=== PATIENT | male | born 1945 | race Caucasian/White ===

== ENCOUNTER 2016-08-07 12:37 | Inpatient (IN) | payer OTHER ==
[~2016-08-07] VITALS: Ht 182.9 cm; Wt 84.4 kg
--- NOTE | ~2016-08-07 | HC ---
[facility] [place] [address] CONSULTATION Name: VIDA PRIEST Room #: 442-P ADM IN M.R.#: [id number] Admission: 08/07/16 Attend Phys: Cipriano Kaplan MD Discharge: Date of : 43 Report #: [id number] THIS REPORT FOR: //name// CC: Obinna Powers DATE OF SERVICE: 08/07/2016 HISTORY OF PRESENT ILLNESS: The patient is a 71-year-old male with a complex medical history. He has a myelodysplastic syndrome that has required recurrent blood transfusions averaging 2 per month for the last year. He has generally seen at the [facility], was actually at a hematology office visit today and was noted to have a hemoglobin of in the 5 range, reportedly was given 2 units of packed cells. He also has been complaining of dark melanotic type stools since Saturday. The plan was for admission over there; however, , therefore he was transferred to [facility] for further evaluation. The patient denies any abdominal pain. He denies any nausea or vomiting. He is not currently on any anticoagulation therapy. He has had an extensive GI workup for GI bleed in May of last year. Upper endoscopy in April 2016, revealed erythematous nodular mucosa with mucosal breaks in the body of the stomach. Biopsies were obtained to rule out H. pylori infection at that time. A colonoscopy was performed on May 08, there was fresh blood noted in the descending colon, scattered erythema and ulceration, biopsies were obtained and the clots were deployed. Capsule study was performed on May 09, a large amount of melena was present in the small-bowel without a clear source seen. An enteroscopy was then performed the next day. No evidence of blood, AVM, or mucosal abnormalities were noted. He had a tagged red blood cell scan on 07/12, that was negative. He had a total of 4 units of packed cells and 1 unit of platelets at that time. He was placed on p.o. PPI at that time. He also has had an episode of epistaxis in June 2016, which need to be cauterized per ENT. He denies any further epistaxis at this time. The patient is undergoing supportive and palliative chemotherapy for his myelodysplastic syndrome. His weight has been fairly stable. He denies any family history of colon cancer. PAST MEDICAL HISTORY: Myelodysplastic syndrome, thrombocytopenia, pancytopenia, he is transfusion dependent, history of pleural effusion, aortic valve stenosis, coronary artery disease, previous coronary artery bypass graft, history of atrial fibrillation paroxysmal, PTSD, history of depression, diabetes type 2, history of dementia, anemia, previous history of GI bleed as described above, COPD, and peripheral vascular disease. ALLERGIES: To OXYCODONE and BEE STINGS. [address] [address] CONSULTATION Name: VIDA PRIEST Room #: 442-P [facility] IN M.R.#: [id number] Admission: 08/07/16 Attend Phys: Cipriano Kaplan MD Discharge: Date of : 43 Report #: [id number] REVIEW OF SYSTEMS: As per HPI. MEDICATIONS: I reviewed his chart for current medications, but I did not find a list of these medications at this time. FAMILY HISTORY: Negative for colon cancer. SOCIAL HISTORY: He denies any tobacco currently. No significant alcohol use. PHYSICAL EXAMINATION: VITAL SIGNS: Temperature is 98.4, pulse 116, blood pressure is 111/73, and respiratory rate is 24. GENERAL: He is alert and oriented x3, in no acute distress. HEENT: Sclerae are nonicteric. Oropharynx is clear. NECK: Supple. CARDIOVASCULAR: Systolic ejection murmur noted, regular rate and rhythm. CHEST: Clear to auscultation bilaterally. ABDOMEN: Soft. He is nontender, nondistended, normoactive bowel sounds. EXTREMITIES: No cyanosis, clubbing or edema. LABORATORY DATA: Office visit lab sheets today showed hemoglobin of 5.0, WBC is 4.7, and platelet count 48. Again, the patient was transfused 2 units of packed cells today. ASSESSMENT AND PLAN: Anemia. The patient with a complex history as he is transfusions dependent due to a myelodysplastic disorder; however, he is having black melanotic type stools. He has had a previous history of gastrointestinal bleed with an extensive workup showing blood in various studies, but not finding an etiology. He was obviously more anemic today and [facility] I would recommend proceeding with a repeat EGD tomorrow. If this is negative, then we would likely proceed with an M2 capsule, especially as the last M2 capsule did show some melanotic changes in the small-bowel, but the bleeding source was not noted, it is possibly could have had a bleeding arteriovenous malformation that was not seen easily due to blood at that time. We would recommend monitoring the hemoglobin closely, make the patient n.p.o. after midnight. Thank you for allowing me to participate in his care. <ELECTRONICALLY SIGNED> By: Peter Franco MD 08/10/16 1655 1810 24 Peter Franco MD /nt
--- NOTE | ~2016-08-07 | H ---
[facility] [place] [address] HISTORY AND PHYSICAL Name: VIDA PRIEST Room #: 442-P ADM IN M.R.#: [id number] Admission: 08/07/16 Attend Phys: Cipriano Kaplan MD Discharge: Date of : 43 Report #: [id number] THIS REPORT FOR: //name// CC: Cipriano Lutz DATE OF SERVICE: 08/07/2016 ATTENDING PHYSICIAN: Nva Lopez MD PRIMARY CARE PHYSICIAN: Saira Lutz MD CHIEF COMPLAINT: Low hemoglobin. HISTORY OF PRESENT ILLNESS: The patient is a 71-year-old male who has a history of myelodysplastic syndrome. He has been transfusion dependent and normally receives blood transfusion about every 2 weeks. He follows with the protection manager at the [facility]. He was reporting black stools for the last 3 days. He was seen in his protection manager clinic earlier today and had blood drawn, which showed a hemoglobin of 5.0. Apparently, the [facility] did not have any bed and he was transferred to [facility] for further evaluation. His record shows that his last hemoglobin on July 31 was 7.7 and that he had received a unit of blood at that time. He is not on any blood thinners. His blood transfusion from the [facility] is now finished. He is currently resting comfortably. He has continued to have black stools for the last few days and the last of which was 2 hours ago after arriving here. He has had extensive GI workup back in May at the [facility], which included an EGD, which showed an erythematous nodular mucosa with mucosal breaks in the body of the stomach. A colonoscopy showed fresh blood in the descending colon with scattered erythema and ulceration, there was a 7 mm ulcer in the descending colon and he had 2 endoclips deployed, there was severe diverticulosis noted on the sigmoid, he also had a capsule study in May, which showed a large amount of melena present in the small bowel without a clear source seen. He has been on PPI. PAST MEDICAL HISTORY: Myelodysplastic syndrome with pancytopenia, aortic stenosis, prior GI bleed, iron deficiency anemia, hypertension, paroxysmal atrial fibrillation, hyperlipidemia, asthma, posttraumatic stress disorder, depression, diabetes type 2, coronary artery disease with prior stent, dementia, anemia, chronic obstructive lung disease, prior pulmonary hemorrhage. PAST SURGICAL HISTORY: He had multiple bone marrow biopsies, most recently 07/30/2016 at the [facility]. He has also had nasal cautery, pacemaker, a CABG times 3 vessel and a carotid stent. [facility] [address] [place] [address] HISTORY AND PHYSICAL Name: VIDA PRIEST Room #: 442-P [facility] IN ..#: [id number] Admission: 08/07/16 Attend Phys: Cipriano Kaplan MD Discharge: Date of : 43 Report #: [id number] ALLERGIES: and OXYCODONE. HOME MEDICATIONS: Stiolto inhaler daily, albuterol nebulizer q. 4 hours p.r.n., iron 325 mg daily, amiodarone 200 mg daily, Crestor 40 mg daily, diltiazem 120 mg daily, Neurontin 600 mg t.i.d., Zoloft 150 mg daily, potassium 20 mEq daily, Lasix 40 mg daily, Singulair 10 mg daily, omeprazole 40 mg daily, metformin 500 mg b.i.d. and finasteride 5 mg at bedtime. SOCIAL HISTORY: The patient lives in [place], [place]. He is an ex-smoker, having quit 20 years ago. He denies any alcohol use. He uses a cane occasionally, but most of the time is able to get around on his own without difficulty. He is a . FAMILY HISTORY: Negative for any blood or bleeding disorders. REVIEW OF SYSTEMS: Twelve point review of systems was reviewed with the patient, otherwise negative unless stated in the HPI. PHYSICAL EXAMINATION: GENERAL: The patient is an alert male in no acute distress. VITAL SIGNS: Temperature is 36.9, heart rate 116, respirations 24, blood pressure is 111/73, oxygen 92% on room air. HEENT: PERRLA. Sclerae is nonicteric. Oral mucosa is pink and moist. NECK: Supple, no JVD noted. CARDIAC: He does have a 3/6 aortic murmur. Normal S1, S2. RESPIRATORY: Breath sounds are clear bilaterally. No wheezing or rhonchi. Breathing is nonlabored. ABDOMEN: Soft, nontender, nondistended with positive bowel sounds. VASCULAR: No edema is noted. Pedal pulses are 2+. NEUROLOGIC: The patient is alert and oriented times 3. Speech is clear. He is moving all extremities equally. No focal weakness noted. LABORATORY DATA AND DIAGNOSTICS: WBC is 3.1, hemoglobin 6.0, platelets 28. Sodium 137, potassium 4.4, BUN 38, creatinine 1.3. Glucose is 160. ASSESSMENT AND PLAN: 1. Severe anemia. This is acute on chronic. His initial hemoglobin at the [facility] was 5.0 today. After 2 units, his hemoglobin increased to 6.0. He does have underlying chronic anemia due to myelodysplastic syndrome, but now is complicated by possible GI bleed. GI is already consulted and plans an EGD in the morning. We will add type and cross and transfuse another 2 units of blood with a dose of Lasix in between and follow serial hemoglobins. 2. Gastrointestinal bleed. He has had prior gastrointestinal bleeding as well. He is not on any blood thinners. GI is consulted and plans for an EGD today. We will add a Protonix bolus with a Protonix drip. [facility] [address] [place] [address] HISTORY AND PHYSICAL Name: CEMVIDA E Room #: 442-P ADM IN ..#: [id number] Admission: 08/07/16 Attend Phys: Cipriano Kaplan MD Discharge: Date of : 43 Report #: [id number] 3. History of myelodysplastic syndrome. He has been transfusion dependent in the past. Follow hemoglobins and continue to follow outpatient visits, regular protection manager at the [facility]. 4. Diabetes type 2. Blood sugar is stable. Add sliding scale insulin while n.p.o. and check blood sugars a.c. and at bedtime. 5. Paroxysmal atrial fibrillation. The patient is currently rate controlled. He does have a pacemaker and resume home meds when able to take p.o. 6. Hypertension. Blood pressure is stable. Resume home medications when able to take p.o. 7. Coronary artery disease with prior coronary artery bypass graft. He is denying any chest pain. 8. Deep venous thrombosis prophylaxis, place sequential compression devices. We will continue to follow the patient closely throughout the hospitalization and make changes based on clinical status. <ELECTRONICALLY SIGNED> By: BRITTANIE Freitas 08/09/16 0640 0650 [id number] BRITTANIE Freitas /anusha
--- NOTE | ~2016-08-07 | P ---
[facility] [place] [address] PROCEDURE REPORT Name: VIDA PRIEST Room #: 442-P ADM IN M.R.#: [id number] Admission: 08/07/16 Attend Phys: Cipriano Kaplan MD Discharge: Date of : 43 Report #: [id number] THIS REPORT FOR: //name// CC: Peter Myles Lutz PROCEDURE: Esophagogastroduodenoscopy with BICAP ablation of gastric arteriovenous malformations that were nonbleeding. The patient of Dr. Poole. INDICATION FOR PROCEDURE: This patient has a history of a myelodysplastic syndrome, complicating probable GI blood loss. His hemoglobin was 5 when he came in and he had a history of black stools. He has been taking iron recently. He has a history of ulcers in his descending colon. I believe this was found at the [facility]. He also had a history of epistaxis. He has many medical problems. He has undergone M2 capsule study that showed blood in the small bowel, but did not reveal the etiology of that blood loss. Apparently a small bowel enteroscopy was performed, but nothing was seen on that test. It is possible that the bleeding source was beyond the reach of that enteroscopy. Informed consent for this procedure was obtained prior to the administration of any medication. The risks of the procedure which include bleeding, perforation, infection, complications of sedation, and the possibility I could miss something have been explained to the patient in the presence of his and he has indicated his consent by signing. Propofol was slowly titrated before and during this procedure for patient comfort by the anesthesia service. The [employer] [place] upper videoscope was introduced through the upper esophageal sphincter and advanced under direct visualization to the third portion of the duodenum. Findings are noted on withdrawal of the scope. First of all, there was no blood in the upper GI tract, whatsoever. The third and second portions of the duodenum appeared normal. Bile was seen coming out of the ampulla. The duodenal bulb showed mild duodenitis with erythema and edema. Pylorus, normal mucosa. Antrum, normal mucosa. In the body of the stomach, there are 2 nonbleeding arteriovenous malformations that are ablated with the BICAP cautery system. There is a patch of gastritis on the lesser curvature of the stomach. Retroflex view of the cardia and fundus did not reveal any abnormalities. The scope was withdrawn into the esophagus. The Z-line is appropriately located at the top of the gastric folds and appears normal. The esophageal mucosa appears normal throughout its entirety. The scope was withdrawn. The patient went to the recovery area in stable condition. He tolerated the procedure well. IMPRESSION: [facility] [address] [place] [address] PROCEDURE REPORT Name: VIDA PRIEST Room #: 442-P [facility] IN ..#: [id number] Admission: 08/07/16 Attend Phys: Cipriano Kaplan MD Discharge: Date of : 43 Report #: [id number] 1. 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 2. Duodenitis mild of the bulb. My recommendations were for him to proceed with an M2 capsule at this point as the AVMs that I saw were not bleeding at this time and because of this history of blood in the small intestine on previous M2 capsule study. Thank you very much once again for allowing me to participate in his care. I would monitor his H and H closely and transfuse as needed. <ELECTRONICALLY SIGNED> By: Roxy Perea DO 08/08/162054 1230 58 Roxy Perae DO /nt
[2016-08-07] MEDS ORDERED: ZOLOFT100 MG PO (20:38)
[2016-08-07] MEDS ORDERED: OMEPRAZOLE40 MG PO (20:40)
[2016-08-07] MEDS ORDERED: IRON325 PO (20:40)
[2016-08-07] MEDS ORDERED: K-DUR 20 MEQ T20 MEQ PO (20:41)
[2016-08-07] MEDS ORDERED: PACERONE 200 M200 M1 PO (20:42)
[2016-08-07] MEDS ORDERED: LASIX 40 MG TAB40 M2 PO (20:42)
[2016-08-07 20:43] LABS: MCHC 32.7 g/dL (28.0-37.0)
[2016-08-07] MEDS ORDERED: CARDIZEM CD120 MG PO (20:43)
[2016-08-07] MEDS ORDERED: METFORMIN HCL500 MG PO (20:44)
[2016-08-07 20:45] LABS: MCH 29.6 pg (26.0-34.0); MCV 90.5 fL (80.0-100.0); RBC 2.03 mil/uL (4.50-6.00); RDW 19.2 % (10.5-14.5); WBC 3.1 thou/uL (4.0-11.0)
[2016-08-07] MEDS ORDERED: NEURONTIN600 MG PO (20:45)
[2016-08-07] MEDS ORDERED: SINGULAIR 10 MG10 M1 PO (20:45)
[2016-08-07] MEDS ORDERED: FINASTERIDE5 MG PO (20:47)
[2016-08-07] MEDS ORDERED: CRESTOR10 MG PO (20:47)
[2016-08-07] MEDS ORDERED: ACCUNEB SO1.25 MG/1 INH (20:49)
[2016-08-07 20:50] LABS: HEMATOCRIT 18.4 % (42.0-52.0)
[2016-08-07 20:51] LABS: CALCIUM 8.2 mg/dL (8.5-10.1); CREATININE 1.3 mg/dL (0.6-1.3); POTASSIUM 4.4 mmol/L (3.5-5.1)
[2016-08-07] MEDS ORDERED: STIOLTO RESPIMAT4 GM IH (20:52)
[2016-08-08 19:17] LABS: HEMATOCRIT 24.1 % (42.0-52.0)
[2016-08-09 05:43] LABS: HEMATOCRIT 23.3 % (42.0-52.0); HEMOGLOBIN 7.7 gm/dL (14.0-18.0)
[2016-08-09 16:08] LABS: HEMOGLOBIN 7.7 gm/dL (14.0-18.0)
[2016-08-09 16:09] LABS: HEMATOCRIT 23.1 % (42.0-52.0)
[2016-08-10 04:29] LABS: HEMOGLOBIN 7.3 gm/dL (14.0-18.0); WBC 2.7 thou/uL (4.0-11.0)
[2016-08-10 04:31] LABS: HEMATOCRIT 22.3 % (42.0-52.0); MCH 29.9 pg (26.0-34.0); MCHC 32.8 g/dL (28.0-37.0); MCV 91.3 fL (80.0-100.0); RBC 2.44 mil/uL (4.50-6.00); RDW 17.4 % (10.5-14.5)
[2016-08-11 03:42] LABS: HEMATOCRIT 22.9 % (42.0-52.0); HEMOGLOBIN 7.7 gm/dL (14.0-18.0); MCH 30.7 pg (26.0-34.0); MCHC 33.6 g/dL (28.0-37.0); MCV 91.4 fL (80.0-100.0); RBC 2.51 mil/uL (4.50-6.00); RDW 17.1 % (10.5-14.5); WBC 2.8 thou/uL (4.0-11.0)
== END 2016-08-11 12:50 | disposition home or self-care (01) | DRG 377 ==
LOC: 4S 12:37
PROVIDERS: Hospitalist; Internal Medicine Gastroenterology; Nurse Practitioner Acute Care
PROC: 0D568ZZ Destruction of Stomach, Via Natural or Artificial Opening Endoscopic (ICD-10-PCS; principal; 2016-08-08)
PROC: 30233N1 Transfusion of Nonautologous Red Blood Cells into Peripheral Vein, Percutaneous Approach (ICD-10-PCS; 2016-08-08)
DX: K55.21 Angiodysplasia of colon with hemorrhage (principal); J96.00 Acute respiratory failure, unspecified whether with hypoxia or hypercapnia; D62 Acute posthemorrhagic anemia; K92.2 Gastrointestinal hemorrhage, unspecified; D46.9 Myelodysplastic syndrome, unspecified; I35.0 Nonrheumatic aortic (valve) stenosis; I25.10 Atherosclerotic heart disease of native coronary artery without angina pectoris; I48.0 Paroxysmal atrial fibrillation; F43.10 Post-traumatic stress disorder, unspecified; F03.90 Unspecified dementia, unspecified severity, without behavioral disturbance, psychotic disturbance, mood disturbance, and anxiety; Z96.89 Presence of other specified functional implants; F32.9 Major depressive disorder, single episode, unspecified; J44.9 Chronic obstructive pulmonary disease, unspecified; E11.51 Type 2 diabetes mellitus with diabetic peripheral angiopathy without gangrene; I10 Essential (primary) hypertension; Z95.1 Presence of aortocoronary bypass graft; Z79.899 Other long term (current) drug therapy; Z88.6 Allergy status to analgesic agent; Z87.891 Personal history of nicotine dependence; K29.81 Duodenitis with bleeding
CPT/HCPCS: 10100; 62110; 62900; 70005